=== PATIENT | female | born 1945 | race Caucasian/White ===

== ENCOUNTER 2022-02-20 19:14 | Inpatient (IN) | payer MEDICARE ==
[~2022-02-20] VITALS: Ht 165.1 cm; Wt 77.1 kg
[2022-02-20] MEDS ORDERED: NACL 0.9% 1,000 ML IV ONE (19:45)
[2022-02-20 19:48] VITALS: BP 123/59
--- NOTE | 2022-02-20 19:55 | NUR ---
PT PLACED IN ED 2 BY EMS, REPORT GIVEN TO EMILIA SEPULVEDA.
[2022-02-20 20:30] LABS: BASOPHILS % (AUTO) 0.2 % (0.0-2.0); HEMATOCRIT 35.1 % (36-48); HEMOGLOBIN 11.8 g/dL (12.0-16.0); LYMPHOCYTES # (AUTO) 1.2 K/uL (2.5-16.5); LYMPHOCYTES % (AUTO) 11.2 % (20.5-51.1); MEAN CORPUSCULAR HEMOGLOBIN 32 pg (27-31); MEAN CORPUSCULAR HGB CONC 34 g/dL (33-37); MEAN CORPUSCULAR VOLUME 95.9 fL (80-94); MONOCYTES # (AUTO) 0.6 K/uL (0.8-1.0); MONOCYTES % (AUTO) 5.6 % (1.7-9.3); NEUTROPHILS # (AUTO) 8.9 K/uL (1.8-7.7); PLATELET COUNT (AUTO) 383 K/uL (140-450); RED BLOOD CELL COUNT(AUTO) 3.66 MIL/uL (4.20-5.40); RED CELL DISTRIBUTION WIDTH 13.8 % (11.6-13.7); WHITE BLOOD COUNT (AUTO) 10.7 K/uL (4.8-10.8)
[2022-02-20 20:53] LABS: ALBUMIN 2.6 g/dL (3.4-5.0); ANION GAP 14.3 (8-16); ASPARTATE AMINOTRANSFERASE 76 U/L (15-37); CARBON DIOXIDE 22.3 mmol/L (21-32); CHLORIDE 110 mmol/L (98-107); CREATININE 0.8 mg/dL (0.6-1.3); GLUCOSE 81 mg/dL (74-106); LIPASE 48 U/L (73-393); POTASSIUM 3.6 mmol/L (3.5-5.1); SODIUM SERUM 143 mmol/L (136-145); TOTAL BILIRUBIN 0.4 mg/dL (0.0-1.0); UREA NITROGEN, BLOOD 22 mg/dL (7-18)
--- NOTE | 2022-02-20 21:26 | NUR ---
PATIENT STABLE VITALS SIGNS IN NORMAL LIMITS ACCUTE CHECK 76 NOW
[2022-02-20 22:43] LABS: APPEARANCE,URINE CLOUDY (CLEAR); BILIRUBIN,URINE NEGATIVE (NEGATIVE); BLOOD, URINE 2+ (NEGATIVE); COLOR,URINE YELLOW (YELLOW); LEUKOCYTE ESTERASE ,URINE NEGATIVE (NEGATIVE); NITRITE, URINE POSITIVE (NEGATIVE); UGLUCOSE NEGATIVE (NEGATIVE)
[2022-02-20 22:49] LABS: RBC,URINE 0-5 /HPF (0-5); WBC,URINE 0-5 /HPF (0-5)
[2022-02-20] MEDS ORDERED: ASPIRIN 325 MG TAB PO ONE (22:50)
[2022-02-20] MEDS ORDERED: cefTRIAXone 1,000 MG VIAL ONE (23:34)
--- NOTE | 2022-02-21 01:27 | NUR ---
PATIENT SLEEPING AT THIS TIME VITALS SIGNS IN NORMAL LIMITS NOT COMPLAINING OF PAIN PATIENT HAS BM AND WE CLEANED HER NOW FOLLOW SLEEP
[2022-02-21] MEDS ORDERED: DEXTROSE 50% 50 ML SYR IVP ONE ×2 (03:08→03:20)
--- NOTE | 2022-02-21 03:23 | NUR ---
I GAVE D50 BY DOCTOR AFTER BS 25 AND NOW IS 307 PATIENT WAS ASYMPTOMATIC WITH BS AT 25
--- NOTE | 2022-02-21 04:19 | NUR ---
PATIENT SLEEPING AT THIS TIME VITALS SIGNS IN NORMAL LIMITS NOT COMPLAINING OF PAIN
--- NOTE | 2022-02-21 06:26 | NUR ---
PATIENT STABLE VITALS SIGNS IN NORMAL LIMITS SR 67 ON MONITORS ACCUTE CHECK 189 PATIENT URINE IN THE BED AND HAVE BM WAS CLEANING AND NOW SLEEPING COMFORTABLE
--- NOTE | 2022-02-21 07:05 | NUR ---
PATIENT DELIVER CLEANED TO SHAUNNA SEPULVEDA CHECK WITH HER REPORT AND ENDORSE CARE TO HER ALSO TO SHAUNNA SEPULVEDA
--- NOTE | 2022-02-21 07:23 | NUR ---
REPORT RECEIVED FROM SHAUNNA SEPULVEDA, TRANSFER OF CARE AT THIS TIME
--- NOTE | 2022-02-21 07:28 | NUR ---
PT LAYING IN BED AT THIS TIME, EVEN AND UNLABORED RESPIRATIONS. PT ALERT AND ORIENTED TO PERSON, PLACE, AND EVENT. PT UNAWARE OF TIME. PT DENIES ANY PAIN. PT REPOSITIONED TO COMFORT.
--- NOTE | 2022-02-21 08:09 | NUR ---
PT MOVED TO ER BED 3. PT REPOSITIONED FOR COMFORT, NEW DIAPER AND PURE WICK APPLIED PER DR SOLOMON. PT PROVIDED BREAKFAST TRAY AT THIS TIME
--- NOTE | 2022-02-21 11:04 | NUR ---
SPO2 DROPPED TO 78% ON RA WHILE PT IS SLEEPING. DR SOLOMON MADE AWARE, VERBAL ORDER FOR 2L N/C
--- NOTE | 2022-02-21 12:39 | NUR ---
Wero, called from [facility] for update if patient had a COVID test done.
[2022-02-21] MEDS ORDERED: MORPHINE SULFATE 2 MG/ML SYR IVP PRN (13:05)
[2022-02-21] MEDS ORDERED: POTASSIUM CHLORIDE 10 MEQ TABER PO PRN (13:05)
[2022-02-21] MEDS ORDERED: ACETAMINOPHEN 325 MG TAB PO PRN (13:05)
[2022-02-21] MEDS ORDERED: DOCUSATE SODIUM 100 MG GELCAP PO PRN (13:05)
[2022-02-21] MEDS ORDERED: MAG SULF 2000 MG/WATER PREMIX 50 ML IV PRN (13:05)
[2022-02-21] MEDS ORDERED: ONDANSETRON 4 MG/2 ML VIAL IVP PRN (13:05)
[2022-02-21] MEDS ORDERED: LORazepam 2 MG/ML VIAL IVP PRN (13:05)
[2022-02-21] MEDS ORDERED: ZOLPIDEM 10 MG TAB PO PRN (13:05)
--- NOTE | 2022-02-21 14:07 | NUR ---
SPOKE WITH PTS SON GABBY TO PROVIDE UPDATE. CALLED VANESSA JUSTICE, PTS DAUGHTER [phone] FOR UPDATE
[2022-02-21] MEDS ORDERED: DEXTROSE 50% 50 ML SYR IVP PRN (15:00)
--- NOTE | 2022-02-21 15:30 | NUR ---
Patient noted to have existing ABRASION upon arrival to ER. Photos taken of wound and placed in chart. Wound covered with BANDAID.
--- NOTE | 2022-02-21 15:34 | NUR ---
200ML OF YELLOW/CLEAR URINE COLLECTED VIA PURWICK
--- NOTE | 2022-02-21 15:43 | NUR ---
Patient will be admitted to [facility]. Admited to TELE. Will go to room 104B. Belongings list completed. Report to GUILLERMO/SHANNAN SEPULVEDA.
--- NOTE | 2022-02-21 16:26 | NUR ---
RECEIVE ER NURSE REPORT FOR PATIENT WHO COME TO HOSPITAL FOR HYPOGLYCEMIA, DIAGNOSIS WITH NSTEMI, HX OF DM, GERD, HTN; ALLERGY TO SULFA, ERYTHROMYCIN. PATIENT IS FULL CODE, AMBULATORY, ALERT X 3ON 2 LITER VIA NC. VOID VIA PRWICK, PIV LAC 20G SALINE LOCK NO ACUTE WOUND. WILL CONTINUE TO MONITOR
[2022-02-21] MEDS: BLOOD GLUCOSE MONITORING 1 DEV DEV FS SCH ×2 (16:30→21:07)
[2022-02-21 16:41] VITALS: BP 137/64
[2022-02-21] MEDS: INSULIN LISPRO SLIDING SCALE 100 UNITS/ML VIAL SUBQ PRN ×2 (19:50→21:06)
[2022-02-21 20:00] VITALS: BP 131/62
--- NOTE | 2022-02-21 20:00 | NUR ---
RECEIVED IN BED ASSESSMENT COMPLETED PLAN OF CARE REVIEWED PT A/OX4 ABLE TO MAKE NEEDS KNOWN PT DENIES PAIN DENIES CHEST PAIN BREATHING EVEN NON LABORED NSR ON TELEMETRY NO ACUTE DISTRESS NOTED AT THIS TIME ORIENTED TO CALL LIGHT BED IN LOW POSITION WILL CONTINUE TO MONITOR AND ASSESS
[2022-02-22] VITALS (7 sets, daily range): BP systolic 114–145; BP diastolic 50–75
--- NOTE | 2022-02-22 06:18 | NUR ---
PT BLOOD GLUCOSE 70 NO HYPOGLYCEMIC S/S NOTED ORANGE JUICE GIVEN AT THIS TIME NO ACUTE DISTRESS
[2022-02-22] MEDS: BLOOD GLUCOSE MONITORING 1 DEV DEV FS SCH ×4 (06:19→21:12)
--- NOTE | 2022-02-22 06:47 | NUR ---
BLOOD CULTURE POSITIVE GRAM COCCI IN [facility] AND PAIRS WILL SEND MD ARMSTRONG MESSAGE NOW AND AWAIT NEW ORDERS
[2022-02-22 07:15] LABS: ANION GAP 16.4 (8-16); CHLORIDE 106 mmol/L (98-107); GLUCOSE 58 mg/dL (74-106); POTASSIUM 4.4 mmol/L (3.5-5.1); SODIUM SERUM 141 mmol/L (136-145); UREA NITROGEN, BLOOD 28 mg/dL (7-18)
[2022-02-22 07:16] LABS: BASOPHILS % (AUTO) 0.2 % (0.0-2.0); HEMATOCRIT 36.7 % (36-48); HEMOGLOBIN 12.2 g/dL (12.0-16.0); LYMPHOCYTES # (AUTO) 1.3 K/uL (2.5-16.5); MEAN CORPUSCULAR HEMOGLOBIN 32 pg (27-31); MEAN CORPUSCULAR HGB CONC 33 g/dL (33-37); MEAN CORPUSCULAR VOLUME 97.1 fL (80-94); MONOCYTES # (AUTO) 0.7 K/uL (0.8-1.0); MONOCYTES % (AUTO) 6.8 % (1.7-9.3); PLATELET COUNT (AUTO) 438 K/uL (140-450); RED BLOOD CELL COUNT(AUTO) 3.77 MIL/uL (4.20-5.40); RED CELL DISTRIBUTION WIDTH 13.7 % (11.6-13.7)
--- NOTE | 2022-02-22 07:16 | NUR ---
CARE ENDORSED TO KENY
--- NOTE | 2022-02-22 08:40 | NUR ---
LATE ENTRY-IVF MEDS
[2022-02-22] MEDS ORDERED: ASPIRIN 81 MG TAB.CHEW PO SCH (09:00)
--- NOTE | 2022-02-22 10:41 | NUR ---
PATIENT HAS BEEN SCREENED AND CATEGORIZED MODERATE NUTRITION RISK. PATIENT WILL BE SEEN WITHIN 3-5 DAYS OF ADMISSION. 02/21/22-02/26/22 REVIEWED BY SH[address] MOYA RD
[2022-02-22] MEDS ORDERED: lisinopriL 10 MG TAB PO SCH (10:55)
--- NOTE | 2022-02-22 11:25 | NUR ---
DC PLANNING: PATIENT HAS [employer]. FAXED THE STABLE FOR TRANSFER ORDER TO [place] [phone] CM TO FOLLOW Addendum: 02/22/22 at 1352 by Flaquita Santiago RN DC PLANNING: RECEIVED A CALL FROM [facility] [phone] , UPDATED PT'S CLINICAL PROVIDE MD'S PHONE NUMBER FOR PEER TO PEER DISCUSSION. NOTIFIED PT AND PT'S FAMILY. CM TO FOLLOW
[2022-02-22] MEDS ORDERED: INSULIN LISPRO 100 UNITS/ML VIAL SUBQ SCH (11:55)
[2022-02-22] MEDS: PIPERACILLIN/TAZOBACTAM 3.375 GM in DEXTROSE 5% 50 ML IV SCH ×3 (12:02→23:50)
[2022-02-22] MEDS: INSULIN LISPRO SLIDING SCALE 100 UNITS/ML VIAL SUBQ PRN ×2 (16:57→21:14)
--- NOTE | 2022-02-22 19:10 | NUR ---
RECEIVED REPORT FROM DAY SHIFT RN WILDER FOR CONTINUITY OF CARE. PT IS AAX4 ON RA. PT IS EATING DINNER. PT NOT IN ANY DISTRESS. PT HAS LEFT AC 20 GAUGE SL. ACCORDING TO DAY SHIFT RN PT IS PENDING TRANSFER TO [place]. NO BEDS AVAILABLE AT THIS TIME. PLAN OF CARE DISCUSSED. WILL CONTINUE TO MONITOR THE PT.
--- NOTE | 2022-02-22 21:00 | NUR ---
[facility] CALLED ACCEPTING PT. THEY WILL CALL BACK WITH ROOM NUMBER AND TRANSPORTATION.
--- NOTE | 2022-02-22 21:18 | NUR ---
BLOOD GLUCOSE CHECKED. PT BLOOD GLUCOSE IS 264. 6 UNITS OF HUMALOG GIVEN. PT HAS NO COMPLAINS AT THIS TIME. WILL CONTINUE TO MONITOR THE PT.
--- NOTE | 2022-02-22 23:47 | NUR ---
GAVE REPORT TO ESTEFANI AT [facility]. STREAM CONTROL OFFICER TIME FOR PT IS 0100.
--- NOTE | 2022-02-23 01:33 | NUR ---
TRANSPORT IS HERE AND TOOK PT TO [facility]. PT IS STABLE.
[2022-02-23] MEDS ORDERED: ATORVASTATIN 20 MG TAB PO SCH (09:00)
== END 2022-02-23 01:33 | disposition short-term general hospital (02) | DRG 637 ==
LOC: MED 19:14 → MTU 02-21 13:02
PROVIDERS: ADMIT Family Medicine; ATTEND Family Medicine
DX: E11.649 Type 2 diabetes mellitus with hypoglycemia without coma (principal); G93.41 Metabolic encephalopathy; I21.A1 Myocardial infarction type 2; E44.0 Moderate protein-calorie malnutrition; N39.0 Urinary tract infection, site not specified; K21.9 Gastro-esophageal reflux disease without esophagitis; D53.1 Other megaloblastic anemias, not elsewhere classified; E87.8 Other disorders of electrolyte and fluid balance, not elsewhere classified; Z20.822 Contact with and (suspected) exposure to COVID-19; E83.51 Hypocalcemia; Z88.2 Allergy status to sulfonamides; Z88.8 Allergy status to other drugs, medicaments and biological substances; Z79.899 Other long term (current) drug therapy; Z68.28 Body mass index [BMI] 28.0-28.9, adult
CPT/HCPCS: 36415; 71045; 80048; 80053; 81001; 82948; 83605; 83690; 83735; 84484; 85025; 87040; 87081; 87086; 87186; 93005; 97163-GP; 97530; J0696; J1815; J2543; J7060